=== PATIENT | male | born 1980 | race Caucasian/White ===

== ENCOUNTER 2016-09-08 19:07 | Emergency (ER) | payer SELFPAY ==
[2016-09-08 19:27] VITALS: BP 122/76
[2016-09-08] MEDS ORDERED: predniSONE TAB* 20 MG PO ONE (19:48)
[2016-09-08] MEDS ORDERED: Albuterol/Ipratropium NEB.SOL* Albuterol 2.5 MG/Ipratropium 0.5 MG 3 ML INH ONE (19:48)
--- NOTE | 2016-09-08 19:48 | UC ---
Respiratory Complaint HPI - HPI Summary HPI Summary: Cough and chest tightness for 2 days last his inhaler and has not used in for a few months - History of Current Complaint Chief Complaint: UCGeneralIllness Stated Complaint: COUGH, CHEST DISCOMFORT Time Seen by Provider: 09/08/16 19:37 Hx Obtained From: Patient Onset/Duration: Sudden Onset, Lasting Days - 2, Still Present Timing: Constant Severity Initially: Mild Severity Currently: Moderate Character: Cough: Nonproductive Aggravating Factors: Allergens, Exertion Alleviating Factors: Nothing Associated Signs And Symptoms: Positive: Chills, Pleuritic Chest Pain, URI - Allergies/Home Medications Allergies/Adverse Reactions: Allergies Allergy/AdvReac Type Severity Reaction Status Date / Time Penicillins [PCN] Allergy Unknown Verified 09/08/16 19:27 Reaction Details PMH/Surg Hx/FS Hx/Imm Hx Previously Healthy: No Endocrine History Of: Denies: Diabetes Cardiovascular History Of: Denies: Hypertension, Pacemaker/ICD Respiratory History Of: Reports: Asthma GI/ History Of: Denies: Renal Disease - Surgical History Surgical History: Yes Surgery Procedure, Year, and Place: TONSILECTOMY - Family History Known Family History: Positive: None Family History: no known familt medical issues - Social History Occupation: Employed Full-time Lives: With Family Alcohol Use: Occasionally Substance Use Type: None Smoking Status (MU): Light Every Day Tobacco Smoker Type: Cigarettes Amount Used/How Often: 1/2 ppd Length of Time of Smoking/Using Tobacco: on & off since age 20 yo - Immunization History Most Recent Influenza Vaccination: [id number] Review of Systems Constitutional: Chills, Fatigue Skin: Negative Eyes: Negative ENT: Negative Respiratory: Shortness Of Breath, Cough Cardiovascular: Negative Gastrointestinal: Negative Genitourinary: Negative Motor: Negative Neurovascular: Negative Musculoskeletal: Negative Neurological: Negative Psychological: Negative All Other Systems Reviewed And Are Negative: Yes Physical Exam Triage Information Reviewed: Yes Appearance: Well-Nourished, Ill-Appearing, Pain Distress Vital Signs: Initial Vital Signs Temp 97.5 F 09/08/16 19:18 Pulse 97 09/08/16 19:18 Resp 17 09/08/16 19:18 BP 122/76 09/08/16 19:18 Pulse Ox 97 09/08/16 19:18 Vital Signs Reviewed: Yes Eye Exam: Normal Eyes: Positive: Conjunctiva Clear ENT Exam: Normal ENT: Positive: Normal ENT inspection, Hearing grossly normal, Pharynx normal, TMs normal. Negative: Nasal congestion, Nasal drainage, Tonsillar swelling, Tonsillar exudate, Trismus, Muffled/hoarse voice Dental Exam: Normal Neck exam: Normal Neck: Positive: Supple, Nontender, No Lymphadenopathy Respiratory Exam: Normal Respiratory: Positive: Chest non-tender, Lungs clear, Normal breath sounds, No respiratory distress, No accessory muscle use Cardiovascular Exam: Normal Cardiovascular: Positive: RRR, No Murmur, Pulses Normal, Brisk Capillary Refill Musculoskeletal Exam: Normal Musculoskeletal: Positive: Strength Intact, ROM Intact, No Edema Neurological Exam: Normal Neurological: Positive: Alert, Muscle Tone Normal Psychological Exam: Normal Skin Exam: Normal UC Diagnostic Evaluation - Laboratory O2 Sat by Pulse Oximetry: 97 Re-Evaluation - Re-Evaluation First Eval Change: Improved - Some relief with duoneb Respiratory Course/Dx - Course Course Of Treatment: albuterol, prednisone, zithromax follow with pcp recheck prn - Differential Dx/Diagnosis Differential Diagnosis/HQI/PQRI: Asthma, Bronchitis, Pulmonary Edema, Exacerbation Of COPD, Laryngitis, Lower Resp Infection Provider Diagnoses: Bronchitis acute exacebation of asthma Discharge - Discharge Plan Condition: Stable Disposition: HOME Prescriptions: Albuterol HFA INHALER* [Ventolin HFA Inhaler*] 2 puff INH Q4H PRN #1 mdi PRN Reason: cough/chest tightness Azithromycin TAB* [Zithromax TAB (Z-RODNEY) 250 mg #6 tabs] 2 tab PO .TODAY, THEN 1 DAILY #1 rodney predniSONE TAB* [Deltasone TAB*] 40 mg PO DAILY #8 tab Patient Education Materials: How to Use a Metered-Dose Inhaler (ED), Acute Bronchitis (ED) Referrals: Enrique Salas DO [Primary Care Provider] - If Needed
== END 2016-09-08 20:34 | disposition home or self-care (01) ==
LOC: UCCORT 19:07
DX: J45.901 Unspecified asthma with (acute) exacerbation (principal); Z88.0 Allergy status to penicillin; F17.210 Nicotine dependence, cigarettes, uncomplicated
CPT/HCPCS: 99212; A9270-GY; G0463; J7512

== ENCOUNTER 2018-03-19 18:09 | Emergency (ER) | payer BC ==
--- NOTE | 2018-03-19 18:24 | UC ---
Ear Complaint HPI - HPI Summary HPI Summary: 37-year-old male complains of 3 days of fullness and discomfort in his right ear. It feels like it straining but nothing is coming out. He also has muffled hearing. He denies any fever, nasal congestion, sinus pressure or pain behind the ear. He has no neck pain. Her but otherwise has no contributory history. - History of Current Complaint Stated Complaint: RT EAR CONCERN Time Seen by Provider: 03/19/18 18:18 Hx Obtained From: Patient - Allergies/Home Medications Allergies/Adverse Reactions: Allergies Allergy/AdvReac Type Severity Reaction Status Date / Time Penicillins Allergy Rash Verified 03/19/18 18:18 PMH/Surg Hx/FS Hx/Imm Hx Previously Healthy: Yes GI/ History: Gastroesophageal Reflux - Surgical History Surgical History: Yes Surgery Procedure, Year, and Place: TONSILECTOMY - Family History Known Family History: Positive: None Family History: no known familt medical issues - Social History Alcohol Use: Occasionally Substance Use Type: None Smoking Status (MU): Light Every Day Tobacco Smoker Type: Cigarettes Amount Used/How Often: 1/2 ppd Length of Time of Smoking/Using Tobacco: on & off since age 20 yo - Immunization History Most Recent Influenza Vaccination: [id number] Review of Systems Constitutional: Negative Skin: Negative Eyes: Negative ENT: Other - Right ear pain. Denies sore throat, runny nose or sinus pain Respiratory: Negative Cardiovascular: Negative All Other Systems Reviewed And Are Negative: Yes Physical Exam Triage Information Reviewed: Yes Appearance: Well-Appearing, No Pain Distress Eye Exam: Normal Eyes: Positive: Conjunctiva Clear ENT: Positive: Pharynx normal, Pharyngeal erythema, TM dull, TM red - Right side only. Negative: Nasal congestion, Nasal drainage, TM bulging, Tonsillar swelling, Tonsillar exudate Respiratory: Positive: Lungs clear, Normal breath sounds Cardiovascular: Positive: RRR Musculoskeletal: Positive: ROM Intact Neurological: Positive: Alert Ear Complaint Course/Dx - Course Course Of Treatment: Patient with right otitis media without canal involvement or mastoid redness/tenderness. Patient has taken amoxicillin in the past with no issue despite his stated allergy. - Differential Dx/Diagnosis Provider Diagnoses: Right acute otitis media Discharge - Sign-Out/Discharge Documenting (check all that apply): Patient Departure - Discharge Plan Condition: Improved Disposition: HOME Prescriptions: Amoxicillin/Clavulanate TAB* [Augmentin TAB 875*] 875 mg PO BID #20 tab Patient Education Materials: Ear Infection (ED) Referrals: Enrique Salas DO [Primary Care Provider] - Additional Instructions: Tylenol, ibuprofen as needed for discomfort. Decongestant such as Mucinex D. Return with high fever, increased pain, worse, new symptoms or other concerns. - Billing Disposition and Condition Condition: IMPROVED Disposition: Home
[2018-03-19 18:26] VITALS: BP 109/77
== END 2018-03-19 18:28 | disposition home or self-care (01) ==
LOC: UCCORT 18:09
DX: H66.91 Otitis media, unspecified, right ear (principal); F17.210 Nicotine dependence, cigarettes, uncomplicated; Z88.0 Allergy status to penicillin
CPT/HCPCS: 99212; G0463

== ENCOUNTER 2018-03-27 14:32 | Emergency (ER) | payer BC ==
[2018-03-27 14:54] VITALS: BP 109/82
--- NOTE | 2018-03-27 15:02 | UC ---
Ear Complaint HPI - HPI Summary HPI Summary: pt c/o R ear discomfort since 03/16/18. seen here on 03/19/18 and dx with an ear infection and tx with augmentin. here today because no relief. he has ongoing sense that his R ear is muffled/plugged. he denies any hx of injury, drainage. - History of Current Complaint Stated Complaint: RIGHT EAR COMPLAINT Time Seen by Provider: 03/27/18 14:53 Hx Obtained From: Patient Aggravating Factors: Nothing Alleviating Factors: Nothing Associated Signs/Symptoms: Positive: Foreign Body Sensation. Negative: Discharge, Trauma to Ear, Swelling @ - Allergies/Home Medications Allergies/Adverse Reactions: Allergies Allergy/AdvReac Type Severity Reaction Status Date / Time Penicillins Allergy Rash Verified 03/27/18 14:56 PMH/Surg Hx/FS Hx/Imm Hx - Additional Past Medical History Additional PMH: OM years ago GI/ History: Gastroesophageal Reflux - Surgical History Surgical History: Yes Surgery Procedure, Year, and Place: TONSILECTOMY - Family History Known Family History: Positive: None Family History: no known familt medical issues - Social History Occupation: Employed Full-time Lives: With Family Alcohol Use: Occasionally Substance Use Type: None Smoking Status (MU): Light Every Day Tobacco Smoker Type: Cigarettes Amount Used/How Often: 1/2 ppd Length of Time of Smoking/Using Tobacco: on & off since age 20 yo - Immunization History Most Recent Influenza Vaccination: [id number] Vaccination Up to Date: Yes Review of Systems Constitutional: Negative Skin: Negative Eyes: Negative ENT: Ear Ache - R Respiratory: Negative Cardiovascular: Negative Gastrointestinal: Negative Genitourinary: Negative Motor: Negative Neurovascular: Negative Musculoskeletal: Negative Neurological: Negative Psychological: Negative Is Patient Immunocompromised?: No All Other Systems Reviewed And Are Negative: Yes Physical Exam Triage Information Reviewed: Yes Eyes: Positive: Conjunctiva Clear ENT: Positive: Pharynx normal, TMs normal - L, R canal is occluded by white but not exudate, Other - no mastoid tenderness or auricular adnopathy.. Negative: Nasal congestion, Nasal drainage Neck: Positive: Supple, Nontender, No Lymphadenopathy Respiratory: Positive: Lungs clear, Normal breath sounds Re-Evaluation - Re-Evaluation First Eval Re-Evaluation Time: 15:30 Change: Improved - nurse able to flush some wax from R ear but white remained. i flushed for more wax and then remove a small piece of cotton swab. canal clear but with deep erythema at distal end plus TM very injected and not just pink from flush. Ear Complaint Course/Dx - Course Course Of Treatment: FB removed frmo R ear. both OM and OE thus will d/c augmentin and tx with cefdinir plus ciprodex and f/u with his ent, Dr Coyne. - Differential Dx/Diagnosis Provider Diagnoses: FB R ear-removed, R OM, R OE. Discharge - Sign-Out/Discharge Documenting (check all that apply): Patient Departure - Discharge Plan Condition: Improved Disposition: HOME Prescriptions: Cefdinir [Cefdinir 300 MG CAP] 300 mg PO BID 7 Days #14 capsule Ciproflox/Dexameth OTIC.SUSP* [Ciprodex OTIC.SUSP*] 4 drop .SEE ORDER BID #1 btl Patient Education Materials: Otitis Externa (DC), Ear Foreign Body (ED), Ear Infection (ED) Referrals: Enrique Salas DO [Primary Care Provider] - If Needed Jeffrey Coyne MD [Medical Doctor] - 7 Days Additional Instructions: STOP THE AUGMENTIN Per institutional requirements, I have reviewed the chart, however, I was not consulted specifically or made aware of this patient by the above midlevel provider. I did not personally evaluate, interact with , or disposition this patient. - Billing Disposition and Condition Condition: IMPROVED Disposition: Home
== END 2018-03-27 15:36 | disposition home or self-care (01) ==
LOC: UCCORT 14:32
DX: T16.1XXA Foreign body in right ear, initial encounter (principal); X58.XXXA Exposure to other specified factors, initial encounter; Y93.9 Activity, unspecified; Y92.9 Unspecified place or not applicable; H66.91 Otitis media, unspecified, right ear; H60.91 Unspecified otitis externa, right ear; Z88.0 Allergy status to penicillin; F17.210 Nicotine dependence, cigarettes, uncomplicated
CPT/HCPCS: 69200; 99213; G0463

== ENCOUNTER 2018-04-11 14:08 | Emergency (ER) | payer BC ==
[2018-04-11 14:25] VITALS: BP 110/81
--- NOTE | 2018-04-11 14:59 | UC ---
Ear Complaint HPI - HPI Summary HPI Summary: 38 y/o male presents to the urgent care c/o RT ear infection for the past month. Pt reports he has already taking 2 courses of ABx that were Rx here at the urgent care w/o any improvement. First time he was Rx Augmentin PO, then in the second visit they removed a small piece of cotton ball and he was Rx Ciprodex otic drops and Cefdinir PO. Pt states he finished all medications and his ear is worsening and now w/ decrease hearing and mild dizziness w/ Nausea. Pt denies fever, [place], SOB, chest pain, abdominal pain, N/V/D. - History of Current Complaint Chief Complaint: UCEar Stated Complaint: RIGHT EAR COMPLAINT Time Seen by Provider: 04/11/18 14:58 Hx Obtained From: Patient Onset/Duration: Gradual Onset, Lasting Weeks - 4 weeks, Still Present, Worse Since - 1 week Severity Initially: Mild Severity Currently: Severe Pain Intensity: 3 Pain Scale Used: 0-10 Numeric Aggravating Factors: Other - touch Alleviating Factors: Nothing Associated Signs/Symptoms: Positive: Hearing Loss - Allergies/Home Medications Allergies/Adverse Reactions: Allergies Allergy/AdvReac Type Severity Reaction Status Date / Time Penicillins Allergy Rash Verified 03/27/18 14:56 PMH/Surg Hx/FS Hx/Imm Hx Previously Healthy: Yes - Pt denies PMHX - Surgical History Surgical History: Yes Surgery Procedure, Year, and Place: TONSILECTOMY. HERNIA X2 A CHILD - Family History Known Family History: Positive: None - Pt denies FMHX Family History: no known familt medical issues - Social History Occupation: Employed Full-time Lives: With Family Alcohol Use: Occasionally Substance Use Type: None Smoking Status (MU): Light Every Day Tobacco Smoker Type: Cigarettes Amount Used/How Often: 1/2 ppd Length of Time of Smoking/Using Tobacco: on & off since age 20 yo Household Exposure Type: Cigarettes - Immunization History Most Recent Influenza Vaccination: [id number] Vaccination Up to Date: Yes Review of Systems Constitutional: Negative Skin: Negative Eyes: Negative ENT: Ear Ache - RT ear pain and drainage, Other - dizziness Respiratory: Negative Cardiovascular: Negative Gastrointestinal: Nausea Genitourinary: Negative Motor: Negative Neurovascular: Negative Musculoskeletal: Negative Neurological: Negative Psychological: Negative Is Patient Immunocompromised?: No All Other Systems Reviewed And Are Negative: Yes Physical Exam - Summary Physical Exam Summary: Vital signs: reviewed General: well developed, well nourished female sitting in the examining table w/ o any apparent distress Skin: [place], warm and dry, no evidence of atopic dermatitis, psoriasis, seborrhea. HEENT: -Head: atraumatic, non tender; no scalp dermatitis. -Eyes: sclera and conjunctiva clear, PERRLA, EOMI -Ears: no pre- or postauricular lymphadenopathy or erythema; RT external ear canal w/ erythema and yellowish drainage, Rt TM injected w/ erythema and severe purulent yellowish discharge. LF external ear canal clear and LF TM WNL. TMs normal w/out bulging or retraction. Good light reflex. No fluid level, vesicles, or bullae. No perforation. -Nose/Face: erythematous and edematous nasal mucosa with clear rhinorrhea, no frontal or maxillary sinus tender to palpation. -Mouth/Throat: Mucous membrane moist, posterior pharynx clear, no erythema or exudates. Neck: supple, FROM, nontender, no lymphadenopathy, no meningismus. Chest: Clear to auscultation, normal breath sounds Abd: soft, Bowel sounds active, Nontender. Back: no spinal or CVAT Neuro: A&O x4, GCS 15, no focal neuro deficits, normal behavior for age. Triage Information Reviewed: Yes Vital Signs: Initial Vital Signs Temp 97.7 F 04/11/18 14:17 Pulse 74 04/11/18 14:17 Resp 16 04/11/18 14:17 BP 110/81 04/11/18 14:17 Pulse Ox 98 04/11/18 14:17 Ear Complaint Course/Dx - Course Course Of Treatment: 38 y/o male presents to the urgent care c/o RT ear infection for the past month. Pt reports he has already taking 2 courses of ABx that were Rx here at the urgent care w/o any improvement. First time he was Rx Augmentin PO, then in the second visit they removed a small piece of cotton ball and he was Rx Ciprodex otic drops and Cefdinir PO. Pt states he finished all medications and his ear is worsening and now w/ decrease hearing and mild dizziness w/ Nausea. Pt denies fever, [place], SOB, chest pain, abdominal pain, N/V/ D. Hx obtained. Pt w/ severe Rt otitis externa and Media on examination and resistant to 2 ABX. Pt's symptoms discussed w/ DR Frazier and seh recommended to get an appt w/ ENT DR Coyne as soon as possible. I called DR Coyne he can see Pt tomorrow at 1000AM. Pt explained the importance to f/u w/ his ENT for ear drainage and further management. Pt understood and agreed w/ plan of care. pt left clinic hemodynamically stable. - Differential Dx/Diagnosis Differential Diagnosis/HQI/PQRI: Barotrauma, Cerumen Impaction, Otitis Externa, Otitis Media, Perforated TM, URI Provider Diagnoses: 1- Acute RT otitis Externa and Media Discharge - Sign-Out/Discharge Documenting (check all that apply): Patient Departure All imaging exams completed and their final reports reviewed: No Studies - Discharge Plan Condition: Stable Disposition: HOME Prescriptions: Cefdinir [Cefdinir 300 MG CAP] 300 mg PO BID 7 Days #14 capsule Patient Education Materials: Ear Infection (ED) Referrals: Jeffrey Coyne MD [Medical Doctor] - 04/12/18 10:00 am Enrique Salas DO [Primary Care Provider] - Additional Instructions: 1-Please take Cefdinir PO as directred. Please f/u w/ DR Coyne tomorrow 2017 at 10:00amd for further management. They are expecting you. 2-Take ibuprofen PO q6-8hrs after meals for pain. - Billing Disposition and Condition Condition: STABLE Disposition: Home
--- NOTE | 2018-04-12 07:51 | UC ---
Discharge - Sign-Out/Discharge Documenting (check all that apply): Post-Discharge Follow Up All imaging exams completed and their final reports reviewed: No Studies - Discharge Plan Condition: Stable Disposition: HOME Prescriptions: Cefdinir [Cefdinir 300 MG CAP] 300 mg PO BID 7 Days #14 capsule Patient Education Materials: Ear Infection (ED) Referrals: Jeffrey Coyne MD [Medical Doctor] - 04/12/18 10:00 am Enrique Salas DO [Primary Care Provider] - Additional Instructions: 1-Please take Cefdinir PO as directred. Please f/u w/ DR Coyne tomorrow 2017 at 10:00amd for further management. They are expecting you. 2-Take ibuprofen PO q6-8hrs after meals for pain. - Billing Disposition and Condition Condition: STABLE Disposition: Home
== END 2018-04-11 15:33 | disposition home or self-care (01) ==
LOC: UCCORT 14:08
DX: H66.91 Otitis media, unspecified, right ear (principal); Z88.0 Allergy status to penicillin; F17.210 Nicotine dependence, cigarettes, uncomplicated
CPT/HCPCS: 99212; G0463

== ENCOUNTER 2019-02-20 14:57 | Emergency (ER) | payer BC ==
[2019-02-20 15:14] VITALS: BP 113/81
--- NOTE | 2019-02-20 15:28 | UC ---
Back Pain HPI - HPI Summary HPI Summary: L low back pain x 1 week. no hx acute injury but often lifts and twists for work. sharp pain occasionally shoots into L leg. - History of Current Complaint Chief Complaint: UCBackPain Stated Complaint: BACK PAIN Time Seen by Provider: 02/20/19 15:18 Hx Obtained From: Patient Timing: Constant Pain Intensity: 6 Aggravating Factor(s): Movement Associated Signs And Symptoms: Positive: Other - no saddle anesthesia. Negative : Fever, Weakness, Numbness, Abdominal Pain, Flank Pain, Bladder Incontinence, Bowel Incontinence - Risk Factors AAA Risk Factors: Negative Cauda Equina Risk Factors: Negative Epidural Abscess Risk Factors: Negative - Allergies/Home Medications Allergies/Adverse Reactions: Allergies Allergy/AdvReac Type Severity Reaction Status Date / Time Penicillins Allergy Rash Verified 02/20/19 15:08 Home Medications: Home Medications Omeprazole 40 mg PO DAILY 02/20/19 [History Confirmed 02/20/19] PMH/Surg Hx/FS Hx/Imm Hx GI/ History: Gastroesophageal Reflux - Surgical History Surgical History: Yes Surgery Procedure, Year, and Place: TONSILECTOMY. HERNIA X2 A CHILD - Family History Known Family History: Positive: None - Pt denies FMHX Negative: Diabetes Family History: no known familt medical issues - Social History Occupation: Employed Full-time Alcohol Use: Occasionally Substance Use Type: None Smoking Status (MU): Former Smoker Type: Cigarettes Amount Used/How Often: 1-2 per day Length of Time of Smoking/Using Tobacco: on & off since age 20 yo When Did the Patient Quit Smoking/Using Tobacco: 10/2018 Household Exposure Type: Cigarettes - Immunization History Most Recent Influenza Vaccination: [id number] Vaccination Up to Date: Yes Review of Systems All Other Systems Reviewed And Are Negative: Yes Constitutional: Negative: Fever, Chills Skin: Negative: Rash Gastrointestinal: Negative: Abdominal Pain Musculoskeletal: Positive: Decreased ROM - low back Neurological: Negative: Weakness Physical Exam Triage Information Reviewed: Yes Appearance: Pain Distress Vital Signs: Initial Vital Signs Temp 98.0 F 02/20/19 15:09 Pulse 84 02/20/19 15:09 Resp 15 02/20/19 15:09 BP 113/81 02/20/19 15:09 Pulse Ox 97 02/20/19 15:09 Vital Signs Reviewed: Yes Eyes: Positive: Conjunctiva Clear Neck: Positive: Supple, Nontender, No Lymphadenopathy, Other: - c-spine non tender. rom intact. Respiratory: Positive: Lungs clear, Normal breath sounds, No respiratory distress Cardiovascular: Positive: RRR Abdomen Description: Positive: Nontender, No Organomegaly, Soft. Negative: Pulsatile Mass Bowel Sounds: Positive: Present Musculoskeletal: Positive: Other: - Back: spine non tender. Tender L lumbar paraspinal mm. rom limited in lumbar region. negative sciatic notch tenderness. negative straight leg raises x2. 5/5 strength, 2+ reflexes and sensation intact x 4. slow but steady gait holding L low back. No saddle anesthesia. Neurological: Positive: Alert Psychological: Positive: Age Appropriate Behavior Skin Exam: Normal Skin: Negative: Rashes Back Pain Course/Dx - Differential Dx/Diagnosis Differential Diagnosis/HQI/PQRI: Other - no concern for infection, acute abdomen or cauda equina. Provider Diagnosis: Low back pain Discharge - Sign-Out/Discharge Documenting (check all that apply): Patient Departure All imaging exams completed and their final reports reviewed: No Studies - Discharge Plan Condition: Stable Disposition: HOME Prescriptions: Cyclobenzaprine TAB* [Flexeril 10 MG TAB*] 10 mg PO TID PRN #10 tab PRN Reason: Pain - Back Naproxen [Naprosyn 500 mg tab] 500 mg PO BID 5 Days #10 tablet Patient Education Materials: Acute Low Back Pain (ED) Forms: *Work Release Referrals: Enrique Salas DO [Primary Care Provider] - 7 Days - Billing Disposition and Condition Condition: STABLE Disposition: Home
[2019-02-20] MEDS ORDERED: Ketorolac INJ* 60 MG/2 ML VIAL IM ONE (15:36)
== END 2019-02-20 16:02 | disposition home or self-care (01) ==
LOC: UCCORT 14:57
DX: M54.5 Low back pain (principal); X50.0XXA Overexertion from strenuous movement or load, initial encounter; Y93.9 Activity, unspecified; Y92.89 Other specified places as the place of occurrence of the external cause; Y99.0 Civilian activity done for income or pay; K21.9 Gastro-esophageal reflux disease without esophagitis; Z87.891 Personal history of nicotine dependence
CPT/HCPCS: 96372; 99212; G0463; J1885

== ENCOUNTER 2019-06-04 13:10 | Emergency (ER) | payer BC ==
[2019-06-04 13:22] VITALS: BP 133/88
--- NOTE | 2019-06-04 13:42 | UC ---
Hand/Wrist HPI - HPI Summary HPI Summary: left wrist pain x 3 weeks FOOSH injury 3 weeks ago pain in 2 out of 10 , worse with movement, better with rest and ice denies any swelling, no bruising, + weakness no numbness or tingling - History Of Current Complaint Chief Complaint: UCUpperExtremity Stated Complaint: LT HAND INJURY x3 WEEKS Time Seen by Provider: 06/04/19 13:21 Hx Obtained From: Patient Onset/Duration: Sudden Onset, Lasting Weeks - 3, Still Present Severity Initially: Moderate Severity Currently: Moderate Pain Intensity: 2 Character Of Pain: Aching Aggravating Factor(s): Movement, Lifting, Flexion Alleviating Factor(s): Rest, Ice Associated Signs And Symptoms: Positive: Weakness. Negative: Swelling, Redness , Bruising, Fever, Numbness/Tingling - Allergies/Home Medications Allergies/Adverse Reactions: Allergies Allergy/AdvReac Type Severity Reaction Status Date / Time No Known Allergies Allergy Verified 06/04/19 13:22 PMH/Surg Hx/FS Hx/Imm Hx Respiratory History: Asthma - Surgical History Surgical History: Yes Surgery Procedure, Year, and Place: TONSILECTOMY. HERNIA X2 A CHILD - Family History Known Family History: Positive: None - Pt denies FMHX Negative: Diabetes Family History: no known familt medical issues - Social History Alcohol Use: Occasionally Substance Use Type: None Smoking Status (MU): Former Smoker Type: Cigarettes Amount Used/How Often: 1-2 per day Length of Time of Smoking/Using Tobacco: on & off since age 20 yo When Did the Patient Quit Smoking/Using Tobacco: 10/2018 Household Exposure Type: Cigarettes - Immunization History Most Recent Influenza Vaccination: [id number] Vaccination Up to Date: Yes Review of Systems All Other Systems Reviewed And Are Negative: Yes Constitutional: Positive: Negative Skin: Positive: Negative Eyes: Positive: Negative Is Patient Immunocompromised?: No Physical Exam Triage Information Reviewed: Yes Appearance: Well-Appearing, No Pain Distress, Well-Nourished Vital Signs: Initial Vital Signs Temp 98.1 F 06/04/19 13:20 Pulse 76 06/04/19 13:20 Resp 18 06/04/19 13:20 BP 133/88 06/04/19 13:20 Pulse Ox 98 06/04/19 13:20 Vital Signs Reviewed: Yes Eye Exam: Normal Eyes: Positive: Conjunctiva Clear ENT: Positive: Normal ENT inspection, Hearing grossly normal, Pharynx normal Neck: Positive: Supple, Nontender Respiratory: Positive: Chest non-tender, Lungs clear, Normal breath sounds Cardiovascular: Positive: RRR, No Murmur, Pulses Normal Abdominal Exam: Normal Musculoskeletal: Positive: Other: - left wrist : no swelling, no bruising, + tenderness radial wrist, no snuff box tenderness, pain with flexion and extension , good Strength Diagnostics - Radiology No standard instances Radiology Interpretation Completed By: Radiologist Summary of Radiographic Findings: left wrist xray report: IMPRESSION: NO FRACTURE OF THE WRIST IS NOTED. Hand/Wrist Course/Dx - Differential Dx/Diagnosis Provider Diagnosis: Sprain of left wrist Discharge ED - Sign-Out/Discharge Documenting (check all that apply): Patient Departure All imaging exams completed and their final reports reviewed: Yes - Discharge Plan Condition: Stable Disposition: HOME Patient Education Materials: Wrist Sprain (ED) Referrals: Enrique Salas DO [Primary Care Provider] - If Needed - Billing Disposition and Condition Condition: STABLE Disposition: Home
== END 2019-06-04 14:02 | disposition home or self-care (01) ==
LOC: UCCORT 13:10
DX: S63.502A Unspecified sprain of left wrist, initial encounter (principal); J45.909 Unspecified asthma, uncomplicated; Z87.891 Personal history of nicotine dependence; W19.XXXA Unspecified fall, initial encounter; Y92.9 Unspecified place or not applicable
CPT/HCPCS: 99211; G0463

== ENCOUNTER 2019-10-24 19:14 | Emergency (ER) | payer BC ==
[2019-10-24 19:34] VITALS: BP 109/74
--- NOTE | 2019-10-24 20:38 | UC ---
Skin Complaint HPI - HPI Summary HPI Summary: 39 yo presents with several day history of a tender, red area in the left groin , which has gradually increased in size. He has had similar occurence in the same location x 2 in the past, most recently about 4 months ago, He feels well, does not have fever or chills. Has not had medical evaluation of similar nodules in the past, but did express purulent drainage last time it occurred. He has not used compresses or topical antibiotics. NO family members have ever been dx'd with MRSA - History of Current Complaint Chief Complaint: UCSkin Time Seen by Provider: 10/24/19 20:27 Stated Complaint: SKIN COMPLAINT Hx Obtained From: Patient Onset/Duration: Gradual Onset, Lasting Days Onset Severity: Mild Current Severity: Mild Pain Intensity: 0 Location: Discrete - left groin Aggravating Factor(s): Clothing, Touch Alleviating Factor(s): Nothing Associated Signs & Symptoms: Positive: Negative - Allergy/Home Medications Allergies/Adverse Reactions: Allergies Allergy/AdvReac Type Severity Reaction Status Date / Time No Known Allergies Allergy Verified 10/24/19 19:29 Home Medications: Home Medications Omeprazole 40 mg PO DAILY 02/20/19 [History Confirmed 10/24/19] Sulfamethox/Trimethoprim DS* [Bactrim DS 800/160 TAB*] 1 tab PO BID #14 tab 01/07 [Rx] PMH/Surg Hx/FS Hx/Imm Hx GI/ History: Gastroesophageal Reflux - Surgical History Surgical History: Yes Surgery Procedure, Year, and Place: TONSILECTOMY. HERNIA X2 A CHILD - Family History Known Family History: Positive: None - Pt denies significant familial illnesses. Negative: Diabetes Family History: no known familt medical issues - Social History Occupation: Student - currently enrolled in a school program for [employer] Lives: With Family Alcohol Use: Rare Substance Use Type: None Smoking Status (MU): Former Smoker Type: Cigarettes Amount Used/How Often: 1-2 per day Length of Time of Smoking/Using Tobacco: on & off since age 20 yo When Did the Patient Quit Smoking/Using Tobacco: 10/2018 Household Exposure Type: Cigarettes - Immunization History Most Recent Influenza Vaccination: [id number] Vaccination Up to Date: Yes Review of Systems All Other Systems Reviewed And Are Negative: Yes Constitutional: Positive: Negative Skin: Positive: Other - tender nodule left groin Eyes: Positive: Negative ENT: Positive: Negative Respiratory: Positive: Negative Cardiovascular: Positive: Negative Gastrointestinal: Positive: Other - reflux under fair control with use of PPI Genitourinary: Positive: Negative Motor: Positive: Negative Neurovascular: Positive: Negative Musculoskeletal: Positive: Negative Neurological/Mental Status: Positive: Negative Psychological: Positive: Negative, Anxious Physical Exam Triage Information Reviewed: Yes Appearance: Well-Appearing, No Pain Distress Vital Signs: Initial Vital Signs Temp 97.6 F 10/24/19 19:29 Pulse 96 10/24/19 19:29 Resp 16 10/24/19 19:29 BP 109/74 10/24/19 19:29 Pulse Ox 98 10/24/19 19:29 Vital Signs Reviewed: Yes ENT: Positive: Pharynx normal Neck: Positive: Supple, Nontender, No Lymphadenopathy Respiratory: Positive: Lungs clear, Normal breath sounds, No respiratory distress Cardiovascular: Positive: RRR, No Murmur Abdomen Description: Positive: Nontender, No Organomegaly, Soft Musculoskeletal Exam: Normal Neurological Exam: Normal Psychological Exam: Normal Skin Exam: Other - 30 x 15mm ovoid area of erythema and induration without pointing.No drainage present for culture. Course/Dx - Course Course Of Treatment: suspect MRSA based on appearance and past experience of similar infections. Culture could not be obtained due to being early in the process, and I+D is not possible. He agrees with treating based on clinical suspicion, and we discussed the anticipated progression. - Differential Diagnoses - Skin Complaint Differential Diagnoses: Abscess, Cellulitis, MRSA - Diagnoses Provider Diagnosis: Abscess of skin of abdomen Discharge ED - Sign-Out/Discharge Documenting (check all that apply): Patient Departure All imaging exams completed and their final reports reviewed: No Studies - Discharge Plan Condition: Stable Disposition: HOME Prescriptions: Sulfamethox/Trimethoprim DS* [Bactrim DS 800/160 TAB*] 1 tab PO BID #14 tab Patient Education Materials: Abscess (ED) Referrals: Enrique Salas DO [Primary Care Provider] - Additional Instructions: Use warm compresses to the skin infection for 5 to 10 minutes 2 or 3 times per day. Take the full course of antibiotics. If an abscess forms as discussed, it might need incision and drainage. Please return for reassessment. - Billing Disposition and Condition Condition: STABLE Disposition: Home
[2019-10-24] MEDS ORDERED: Sulfamethox/Trimethoprim DS 800/160* TAB PO ONE (20:41)
== END 2019-10-24 20:49 | disposition home or self-care (01) ==
LOC: UCCORT 19:14
DX: L02.214 Cutaneous abscess of groin (principal); K21.9 Gastro-esophageal reflux disease without esophagitis; Z87.891 Personal history of nicotine dependence; Z79.899 Other long term (current) drug therapy
CPT/HCPCS: 99212; A9270-GY; G0463